=== PATIENT | female | born 1980 | race Caucasian/White ===

== ENCOUNTER 2020-03-08 22:12 | Emergency (ER) | payer BC, SELFPAY ==
[2020-03-08] VITALS (9 sets, daily range): BP systolic 139–165; BP diastolic 67–95; PULSE 71–94; RESP 14–25; TEMP 37.3; O2SAT 100
--- NOTE | 2020-03-08 22:30 | W.ED.GENAD ---
Discharge Plan Disposition Patient Disposition: HOME Condition: Good Discharge Details Clinical Impression: Vertigo, Peripheral vertigo, Microcytic anemia Primary Care Provider: Belle,Local ED Provider: [place] Medeiros Home Meds and New Rx's Prescriptions: New meclizine 25 mg tablet 25 mg PO TID Qty: 30 RF: 0 Discharge Instructions Instructions: Vertigo (ED), Anemia (ED) Additional Instructions: At this time your dizziness was likely caused by a condition called vertigo, this will likely improve with time and good hydration at home. Please take the meclizine as needed for the dizziness. During your work-up it was noted that you have an abnormally low hemoglobin/blood level. We gave you 1 unit of blood here which will certainly help improve it, however you need further evaluation for a central cause of the low blood. Please follow-up closely with your primary care provider. They can reach out to our hospital to get any of the results of the tests that were performed today. Please make sure to take a multivitamin and also take an iron supplement. If you notice any worsening of your symptoms, or any new symptoms such as vomiting, diarrhea, fever, chills, shortness of breath, chest pain, numbness, weakness, or fainting , please return immediately to the emergency department for reevaluation. Please follow up with your primary care provider as soon as possible for reassessment and reevaluation. As always, it was a pleasure participating in your medical care today. Medical Decision Making Pleasant 39-year-old female who denies any significant past medical history presents today for evaluation of dizziness. Patient states the dizziness started 1 hour ago, she is watching TV on the large TV screen when she noticed it beginning. It progressed rapidly to the point that she states that she had difficulty walking and moving because of how dizzy she fell. She denies any vomiting or diarrhea. She denies any headache or tinnitus. Aside for difficulty focusing with her eyes she denies any significant visual changes. She denies any IV or illicit drug use, she denies any tobacco marijuana or alcohol use. She denies any numbness or weakness. She denies ever having symptoms like this before. No other complaints at this time. No other modifying factors. Physical exam demonstrates mild ataxia, but no wide-based gait, notable unidirectional right-sided fatigable horizontal nystagmus, notably positive head impulse test. The remainder of her neurologic exam seems to be unremarkable at this time. Differential is high for peripheral vertigo, however her symptoms are slightly atypical, we will get a CT scan of the head to rule out mass or large stroke which I feel unlikely. We will check a carbon monoxide level, gently rehydrate, treat with Valium and meclizine and Zofran. 1:05 AM On reassessment the patient has notable improvement of her symptoms. We did get her up to ambulate again and she normally ambulates well without difficulty. No ataxia. Nystagmus has resolved. She feels notably better. CT head is negative for process. Laboratory work-up is returned and the patient demonstrates a hemoglobin of 7.2 with a microcytic component. Notably atypical. She does state that she chronically takes vitamin B12 supplements secondary to a previous deficiency. She denies any history of significant anemia in the past though. Electrolytes are normal, carbon monoxide level is well within normal limits. Renal function normal. Alcohol negative. Her symptoms appear to be consistent with peripheral vertigo however her anemia likely exacerbated the event. I suspect it is chronic anemia. Rectal exam was performed, Hemoccult negative. She denies vaginal bleeding, she states that when she does have a. They are notably mild. She denies any history of bleeding otherwise. I do feel she would benefit from further outpatient work-up on a nonemergent basis. She does feel notably fatigued, and I suspect that a large component is her anemia. We did discuss risks and benefits of blood products, and at this time she would like 1 unit which I do feel is appropriate at this time with her clinical symptoms and her notably low hemoglobin. We will continue to monitor here in the ED with expectant eventual discharge and outpatient close follow-up. Of note she tolerated the meclizine very well here. 3:17 AM On reassessment the patient has had complete resolution of her symptoms. She feels much better, she would like to go home. But has transfused and she feels well, no tachycardia or hypotension. Anemia likely chronic. Patient will be discharged home with recommendations for prompt follow-up with her PCP. Signs and symptoms clinically consistent with peripheral vertigo, and an incidental finding of microcytic anemia. Discussed red flags which to return, including recommendations for supplemental iron intake. I have extensively reviewed the treatment plan and discharge instructions with the patient. I have addressed all patient concerns at this time. The patient was made aware of what symptoms to monitor for that would warrant a return to the emergency department. Discussed the plan with the patient, they demonstrate verbal understanding and agreement with our assessment and plan at this time. FINDINGS: Brain: Cerebral sulci show bilateral symmetry with no supratentorial mass or mass effect detected. Brainstem and cerebellum are normal in appearance. There is no evidence of acute intracranial hemorrhage. Cerebral ventricles: Ventricular and cisternal spaces are normal in size and configuration and there is no midline shift or hydrocephalus seen. Bones/joints: Bony calvarium and skull base are intact and no acute fractures are detected. Paranasal sinuses: Paranasal sinuses are clear throughout and their bony margins are intact at the levels imaged. Mastoid air cells: Normally pneumatized and clear bilaterally. Soft tissues: Unremarkable. IMPRESSION: Unremarkable noncontrast head CT with no evidence of an acute intracranial process. Thank you for allowing us to participate in the care of your patient. HPI General Date/Time Provider Initiated Documentation: 03/08/20 22:13. HPI Narrative: Pleasant 39-year-old female who denies any significant past medical history presents today for evaluation of dizziness. Patient states the dizziness started 1 hour ago, she is watching TV on the large TV screen when she noticed it beginning. It progressed rapidly to the point that she states that she had difficulty walking and moving because of how dizzy she fell. She denies any vomiting or diarrhea. She denies any headache or tinnitus. Aside for difficulty focusing with her eyes she denies any significant visual changes. She denies any IV or illicit drug use, she denies any tobacco marijuana or alcohol use. She denies any numbness or weakness. She denies ever having symptoms like this before. No other complaints at this time. No other modifying factors. Related Data Home Medications Medication Instructions Recorded Confirmed meclizine 25 mg PO TID #30 tab 03/09/20 Previous Rx's Medication Instructions Recorded meclizine 25 mg PO TID #30 tab 03/09/20 Allergies Allergy/AdvReac Type Severity Reaction Status Date / Time diphenhydramine Allergy Unverified 03/09/20 01:47 [From Benadryl] General Stated Complaint: Dizzy/Sync ESAU: 3 Review of Systems All systems reviewed & are unremarkable except as noted in HPI and below [facility] Social History (Reviewed 03/08/20 @ 22:31 by WILLI Lundy Smoking/Tobacco Use Status: Never Smoking risk assessment performed?: Yes Alcohol Intake: current Alcohol Intake frequency: a few times a month Drug use: Never Substance use type: does not use Do you feel safe at home: Yes Do you feel safe in your relationship?: Yes Exam Narrative Exam Narrative: 1.Const: Well-nourished, Well-developed, appearing stated age 2.Eyes: PERRL, no conjunctival injection, and symmetrical lids. 3.ENT: Atraumatic external nose and ears. Moist MM. Neck: Symmetric, trachea midline, No thyromegaly. Patient demonstrates good movement of cervical neck. There is no nuchal rigidity, no nuchal tenderness. Patient is able to flex the neck without any difficulty or significant pain. Negative Kernig's and Brudzinski sign. 4.CVS: +S1/S2, No murmurs or gallops. Peripheral pulses 2+ and equal in all extremities. Brisk capillary refill in all extremities. 5.RESP: Unlabored respiratory effort. Clear to auscultation bilaterally. No wheezes rales or rhonchi 6.GI: Soft, Nontender/Nondistended, No hepatosplenomegaly. No guarding or rebound. 7.MSK: Normocephalic/Atraumatic, Extremities w/o deformity or ttp No cyanosis or clubbing, Normal movement of all extremities 8.Skin: Warm, Dry. No rashes or lesions. 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 Sensation grossly intact, all 6 cardinal planes of vision are fully intact. No evidence of vertical nystagmus, however she does demonstrate unidirectional right-sided horizontal nystagmus which appears to be fatigable as well.. The patient demonstrated a normal [id number], good dexterity. There was no evidence of dysdiadochokinesia. Patient was able to ambulate but did have mild difficulty and ataxia. There was no wide-based gait. Romberg testing was normal. [id number] testing was normal. Sensation was intact bilaterally as well as muscle strength bilaterally for all extremities. Patient was able to verbalize butter cup with no slurring, or miss pronunciation. Notably positive head impulse test. Test of skew was difficult to visualize secondary to patient compliance with her dizziness. 10.Psych: (AAO) x3. Appropriate mood and affect Course Vital Signs Vital signs: Vital Signs Temperature 37.3 C 03/08/20 22:16 Pulse 94 H 03/08/20 22:16 Respiratory Rate 18 03/08/20 22:16 Blood Pressure 165/95 H 03/08/20 22:16 Pulse Oximetry 100 03/08/20 22:16 Temperature 37.3 C 03/08/20 22:16 Temperature Source Temporal Artery Scan 03/08/20 22:16 Pulse 94 H 03/08/20 22:16 Respiratory Rate 18 03/08/20 22:16 Respiratory Effort Non-Labored 03/08/20 22:26 Blood Pressure 165/95 H 03/08/20 22:16 Blood Pressure Position Supine 03/08/20 22:16 Pulse Oximetry 100 03/08/20 22:16 Oxygen Delivery Method Room Air 03/08/20 22:16 Oxygen Flow Rate 0 03/08/20 22:16 Pain Level 0 03/08/20 22:16
[2020-03-08] MEDS: Meclizine 25 MG TAB PO (22:40)
[2020-03-08 23:07] LABS: Abs Immature Grans 0.01 10^3/uL (0.0-0.06); Absolute Basophil Count 0.03 10^3/uL (0.0-0.2); Absolute Eosinophil Count 0.08 10^3/uL (0.0-0.7); Absolute Lymphocyte Count 1.78 10^3/uL (1.2-3.4); Absolute Neutrophil Count 3.97 10^3/uL (1.2-6.7); Basophils % 0.5; Eosinophils % 1.2; HCT 27.3 % (36.0-46.0); HGB 7.2 g/dL (11.2-15.7); Immature Grans % 0.2; Lymphocytes % 27.5; MCH 15.9 pg (27.0-33.0); MCHC 26.4 % (32.0-36.0); MCV 60.1 fL (80-95); MPV 9.4 fL (8.0-11.0); Monocytes % 9.3; Neutrophils % 61.3; Nucleated RBC 0 %; Platelet Count 525 10^3/uL (130-400); RBC 4.54 10^6/uL (3.93-5.22); RDW 21.1 % (11.7-14.6); WBC 6.47 10^3/uL (4.4-10.8)
[2020-03-08] MEDS: diazePAM 10 MG/2 ML SYR 5 MG IVP (23:09)
[2020-03-08] MEDS: Ondansetron 4 MG/2 ML VIAL IVP (23:11)
[2020-03-08] MEDS: Normal Saline 1,000 ML 1000 ML IV (23:11)
[2020-03-08 23:17] LABS: Diff Comment Agrees w/ Instrument
[2020-03-08 23:18] LABS: Anisocytosis 1+; Hypochromasia 1+; Microcytosis 2+
[2020-03-08 23:19] LABS: Poikilocytes 1+
--- NOTE | 2020-03-08 23:20 | DI.CT_ITS ---
EXAM: CT HEAD WO CLINICAL HISTORY: sudden onset dizzy, severe. TECHNIQUE: Imaging Protocol: Axial computed tomography images with coronal and sagittal reformatted images were created and reviewed COMPARISON: No exams were available for comparison FINDINGS: Ventricles and Extra axial spaces: Normal in size and morphology for the patient's age. Hemorrhage: None. Cerebral parenchyma: Normal. Midline shift: None. Brainstem/Cerebellum: Normal. Calvarium: Normal. Visualized Paranasal sinuses/Mastoids: Clear. Soft Tissues: Unremarkable. IMPRESSION: No acute intracranial process. RADIATION DOSE DELIVERED: 744.86mGy.cm Total DLP DATA REPOSITORY: All CT scans at this facility are submitted to the National Radiology Data Registry (NRDR) Dose Index Registry (DIR) with the [employer] ([employer]). RADIATION OPTIMIZATION: All CT scans at this facility use at least one of these dose optimization te chniques: automated exposure control; mA and/or kV adjustment per patient size (includes targeted exa ms where dose is matched to clinical indication); or iterative reconstruction.
[2020-03-08 23:30] LABS: ALT 20 U/L (14-59); AST 11 U/L (15-37); Albumin 3.5 g/dL (3.4-5.0); Alkaline Phosphatase 51 U/L (46-116); Anion Gap 10.5 mmol/L (3-11); BUN 15 mg/dL (7-18); Bilirubin, Total 0.3 mg/dL (0.2-1.0); CO2 23.5 mmol/L (21.0-32.0); CREATININE 0.81 mg/dL (0.55-1.02); Calcium 8.2 mg/dL (8.5-10.1); Chloride 103 mmol/L (98-107); ETHANOL BLOOD 3.1 mg/dL (<3); Glucose 164 mg/dL (74-106); Potassium 3.5 mmol/L (3.5-5.1); Sodium 137 mmol/L (136-145); TSH (W/Ref FT4) 1.12 uIU/mL (0.36-3.74); Total Protein 6.7 g/dL (6.4-8.2)
--- NOTE | 2020-03-08 23:39 | DI.VRAD_ITS ---
PROCEDURE INFORMATION: Exam: CT Head Without Contrast Exam date and time: 03/08/2020 11:21 PM Age: 39 years old Clinical indication: Patient HX: Sudden onset of severe dizziness TECHNIQUE: Imaging protocol: Computed tomography of the head without contrast. Radiation optimization: All CT scans at this facility use at least one of these dose optimization techniques: automated exposure control; mA and/or kV adjustment per patient size (includes targeted exams where dose is matched to clinical indication); or iterative reconstruction. COMPARISON: No relevant prior studies available. FINDINGS: Brain: Cerebral sulci show bilateral symmetry with no supratentorial mass or mass effect detected. Brainstem and cerebellum are normal in appearance. There is no evidence of acute intracranial hemorrhage. Cerebral ventricles: Ventricular and cisternal spaces are normal in size and configuration and there is no midline shift or hydrocephalus seen. Bones/joints: Bony calvarium and skull base are intact and no acute fractures are detected. Paranasal sinuses: Paranasal sinuses are clear throughout and their bony margins are intact at the levels imaged. Mastoid air cells: Normally pneumatized and clear bilaterally. Soft tissues: Unremarkable. IMPRESSION: Unremarkable noncontrast head CT with no evidence of an acute intracranial process. Dictated and Authenticated by: Hugh Markham MD. Ordering:CALEB Delarosa MD
--- NOTE | 2020-03-08 23:51 | NUR.NOTE ---
Nursing Note: Patient's gown and bra removed due to being wet. Chaperoned with Dr Medeiros for a rectal exam for hemoccult specimen. Patient tolerated well.
[2020-03-09] VITALS (23 sets, daily range): BP systolic 102–142; BP diastolic 56–81; PULSE 63–80; RESP 10–24; TEMP 37–37.3; O2SAT 65–100
--- NOTE | 2020-03-09 00:23 | W.PM.HP.N ---
Date of service: 03/09/20 Time of Service: 00:23 Assessment and Plan Assessment and plan (1) Vertigo: Status: Acute Assessment and plan: Vertigo, almost certainly peripheral. Would advise trial meclizine and as long as she is able to navigate I would treat as outpatient. As to the anemia this is no doubt a chronic and incidental issue, presumably from ongoing loss through menses. Advise iron studies and will presumably, pending levels, need iron supplements. History of Present Illness History of Present Illness Chief Complaint: dizziness Narrative: 39 female reports sudden onset vertigo this evening while watching TV. Initially a dequan spinning sensation, since more a sense of unsteadiness, or a feeling like she is falling (as in an airplane she says). In ER head CT negative, but labs of note for microcytic anemia, with hct 27 and MCV 60. Stool heme negative, though patient continues with regular menses; states she has not haqd a prior Hct. Given meclizine, Valium and Zofran. At the time I am seeing her she states she is feeling some definite improvement. I was asked to assess for possible admission. Review of Systems All systems reviewed & are unremarkable except as noted in HPI and below PFSH Social History Smoking/Tobacco Use Status: Never Smoking risk assessment performed?: Yes Alcohol Intake: current Alcohol Intake frequency: a few times a month Drug use: Never Substance use type: does not use Do you feel safe at home: Yes Do you feel safe in your relationship?: Yes Meds Home Medications and Allergies Home Medications Medication Instructions Recorded Confirmed Type meclizine 25 mg PO TID #30 tab 03/09/20 Rx Allergies Allergy/AdvReac Type Severity Reaction Status Date / Time diphenhydramine Allergy Unverified 03/09/20 01:47 [From Benadryl] Exam Narrative Exam Narrative: 165/95, 94, 37.3, 20, 100% RA. HEENT atraumatic; neck supple; lungs clear; heart RRR; abdomen soft and NT; extremities w/o edema; neuro Ox3, language fluent and conversation lucid; PERRL, negative nystagmus, EOMI; no facial asymmetry, motor 5/5, FTN WNL Results Labs Result diagrams: 03/08/20 23:00 03/08/20 23:00 Labs: Laboratory Results - last 24 hr 03/08/20 03/08/20 03/08/20 00:10 23:00 23:00 WBC 6.47 RBC 4.54 Hgb 7.2 L Hct 27.3 L MCV 60.1 L MCH 15.9 L MCHC 26.4 L RDW 21.1 H Plt Count 525 H MPV 9.4 Immature Gran % 0.2 Neutrophils % 61.3 Lymphocytes % 27.5 Monocytes % 9.3 Eosinophils % 1.2 Basophils % 0.5 Nucleated RBC % 0 Absolute Neutrophils 3.97 Absolute Lymphocytes 1.78 Absolute Monocytes 0.60 Absolute Eosinophils 0.08 Absolute Basophils 0.03 RBC Morphology See below Hypochromasia 1+ Poikilocytosis 1+ Anisocytosis 1+ Microcytosis 2+ Sodium 137 Potassium 3.5 Chloride 103 Carbon Dioxide 23.5 Anion Gap 10.5 BUN 15 Creatinine 0.81 Estimated GFR/1.73 m2 >= 60.00 Glucose 164 H Calcium 8.2 L Total Bilirubin 0.3 AST 11 L ALT 20 Alkaline Phosphatase 51 Total Protein 6.7 Albumin 3.5 TSH 1.12 Ethyl Alcohol 3.1 Crossmatch See Detail Last Vital Signs Temp 37.3 C 03/08/20 22:16 Pulse 94 H 03/08/20 22:16 Resp 20 03/08/20 22:27 BP 165/95 H 03/08/20 22:16 Pulse Ox 100 03/08/20 22:16 COVID-19 Screening Have you, or household traveled for leisure in last 14 days?: Yes Had IN PERSON contact w/suspected or confirmed C-19 person: No
[2020-03-09 00:36] LABS: Iron 11 ug/dL (50-170); Total Iron Binding Capacity 444 ug/dL (250-450); Transferrin Sat 2 % (15-50)
[2020-03-09 00:47] LABS: Ammonia < 10 umol/L (11-32)
[2020-03-09 01:17] LABS: Ferritin 4 ng/mL (8-252)
[2020-03-09 02:22] LABS: *AMPHETAMINES SCREEN URINE Negative (Negative); *BARBITURATES SCREEN URINE Negative (Negative); *BENZODIAZEPINES SCREEN URINE Negative (Negative); Cannabinoids THC POSITIVE (Negative); Cocaine Screen,Urine Negative (Negative); METHADONE URINE SCREEN Negative (Negative); OPIATES URINE SCREEN Negative (Negative)
[2020-03-09 02:29] LABS: Tricyclic Antidepressants Negative (Negative)
[2020-03-13 10:55] LABS: Transferrin 340 mg/dL (201-352)
== END 2020-03-09 03:55 | disposition home or self-care (01) ==
LOC: ER 03-09 02:07
PROVIDERS: Emergency Provider Student in an Organized Health Care Education/Training Program
DX: H81.391 Other peripheral vertigo, right ear (principal); D50.9 Iron deficiency anemia, unspecified; R27.0 Ataxia, unspecified
CPT/HCPCS: 36415; 36430; 80053; 80307; 81025; 82375; 86850; 86900; 86901; 86920; 87040; 96361; 96374; 96375; 99222; 99285; 70450; 80320; 82140; 82728; 83540; 83550; 83655; 84443; 84466; 85025; J2405; J3360; P9016